=== PATIENT | female | born 1945 | race Caucasian/White ===

== ENCOUNTER 2017-01-30 05:14 | Inpatient (IN) | payer OTHER ==
[2017-01-27 12:48] VITALS: BMI 31.0
--- NOTE | 2017-01-27 13:31 | PAT Medication Instructions ---
Service Date Jan 27, 2017. Current Home Medication List Acetaminophen (Tylenol), 1 TAB PO TID PRN for PRN Alprazolam (Xanax), 0.25 MG PO BID PRN for PRN Aspirin (Aspirin Ec), 81 MG PO QAM Atorvastatin (Lipitor), 40 MG PO Q2D B-Complex W/Biotin & Folic Aci (Super B-50 B-Complex), 1 TAB PO QAM Calcium Carbonate-Vitamin D (Calcium + D), 1 TAB PO BID Cholecalciferol (Vitamin D3), 1 TAB PO QAM Cyanocobalamin (Vitamin B12 500MCG), 1,000 MCG PO QAM Diclofenac (Voltaren), 75 MG PO BID Furosemide (Lasix), 20 MG PO PRN Gabapentin (Neurontin), 600 MG PO HS Glipizide (Glipizide Er), 1 TAB PO QAM Hctz/Losartan (Hyzaar 12.5MG/50MG), 1 TAB PO QAM Insulin Glargine (Toujeo Solostar), 29 UNITS INJ HS Levothyroxine Sodium (Levothyroxine Sodium), 1 TAB PO QAM Oxycodone/Acetaminophen 5MG/325MG (Percocet 5MG/325MG), 1 TAB PO TID PRN for PRN Sertraline (Zoloft), 150 MG PO HS [Soma], 1 TAB PO TID PRN for RN [Noah Reds], 1 TAB PO QAM Medication Instructions For Your Scheduled Surgery - Check with surgeon for instructions: Diclofenac (Voltaren), 75 MG PO BID - Hold the following medications starting 01/28/17: [Noah Reds], 1 TAB PO QAM - Hold the following medications the morning of surgery: Hctz/Losartan (Hyzaar 12.5MG/50MG), 1 TAB PO QAM Glipizide (Glipizide Er), 1 TAB PO QAM Furosemide (Lasix), 20 MG PO PRN Cyanocobalamin (Vitamin B12 500MCG), 1,000 MCG PO QAM Cholecalciferol (Vitamin D3), 1 TAB PO QAM Calcium Carbonate-Vitamin D (Calcium + D), 1 TAB PO BID B-Complex W/Biotin & Folic Aci (Super B-50 B-Complex), 1 TAB PO QAM [Soma], 1 TAB PO TID PRN for RN - Take the following medications the morning of surgery with a sip of water: Levothyroxine Sodium (Levothyroxine Sodium), 1 TAB PO QAM Oxycodone/Acetaminophen 5MG/325MG (Percocet 5MG/325MG), 1 TAB PO TID PRN for PRN Atorvastatin (Lipitor), 40 MG PO Q2D Aspirin (Aspirin Ec), 81 MG PO QAM (okay to continue per surgeon) Acetaminophen (Tylenol), 1 TAB PO TID PRN for PRN (if needed) Alprazolam (Xanax), 0.25 MG PO BID PRN for PRN (if needed) - Take the following medications as scheduled the night before surgery: Sertraline (Zoloft), 150 MG PO HS Oxycodone/Acetaminophen 5MG/325MG (Percocet 5MG/325MG), 1 TAB PO TID PRN for PRN (if needed) Insulin Glargine (Toujeo Solostar), 29 UNITS INJ HS Gabapentin (Neurontin), 600 MG PO HS Furosemide (Lasix), 20 MG PO PRN (if needed) Calcium Carbonate-Vitamin D (Calcium + D), 1 TAB PO BID Acetaminophen (Tylenol), 1 TAB PO TID PRN for PRN (if needed) Alprazolam (Xanax), 0.25 MG PO BID PRN for PRN (if needed) [Soma], 1 TAB PO TID PRN for RN If you have any questions please call us at [phone] or [phone] or [phone]
--- NOTE | 2017-01-27 14:16 | DIAGNOSTIC IMAGING REPORT ---
CHEST 2 VIEWS ROUTINE HISTORY:71 yearsFemalepreoperative exam. COMPARISON: None available. TECHNIQUE: Frontal and lateral views of the chest. FINDINGS: Cardiomediastinal and hilar silhouettes are within normal limits. No pneumothorax, pleural effusion, focal airspace consolidation or overt pulmonary edema. Degenerative changes are seen within the bilateral acromioclavicular and glenohumeral joints. Multilevel intervertebral disc space narrowing is present. IMPRESSION: No acute cardiopulmonary process. The above report was generated using voice recognition software. It may contain grammatical, syntax or spelling errors. Electronically signed by: Kenan Ramirez M.D. 01/27/2017 2:14 PM Dictated Date/Time: 01/27/2017 2:13 PM
[2017-01-27 14:53] LABS: BASO % 0.5 %; BASO ABS # 0.03 K/uL (0-0.2); COMPLETE YES; EOS % 6.3 %; HEMATOCRIT 41.4 % (37-47); LYMPH % 29.6 %; LYMPH ABS # 1.73 K/uL (1.2-3.4); MEAN CELL VOLUME 87.9 fL (80-100); MEAN CORPUSCULAR HGB CONC 31.9 g/dl (32-36); MEAN PLATELET VOLUME 9.8 fL (7.4-10.4); MONO % 8.2 %; NEUT % 55.4 %; PLATELET COUNT 290 K/uL (130-400); RED BLOOD COUNT 4.71 M/uL (4.2-5.4); WHITE BLOOD COUNT 5.84 K/uL (4.8-10.8)
[2017-01-27 15:04] LABS: PROTHROMBIN TIME (PATIENT) 10.3 SECONDS (9.0-12.0)
[2017-01-27 15:09] LABS: CALCIUM 9.5 mg/dl (8.5-10.1); CREATININE 0.71 mg/dl (0.60-1.20); POTASSIUM 3.3 mmol/L (3.5-5.1)
[2017-01-27 16:56] LABS: URINE APPEARANCE CLEAR (CLEAR); URINE BILIRUBIN NEG (NEG); URINE COLOR YELLOW; URINE EPITHELIAL CELL AUTO 0-5 /lpf (0-5); URINE NITRITE NEG (NEG); URINE SPECIFIC GRAVITY 1.014 (1.000-1.030); UROBILINOGEN NEG (NEG)
[2017-01-27 16:58] LABS: MANUAL MICROSCOPIC REQUIRED? NO; REVIEW REQ? NO
--- NOTE | 2017-01-28 14:25 | EDITING REQUIRED CODING QUERY ---
DIAGNOSIS NEEDED To promote full compliance with coding requirements relating to patient care, physician participation is requested in all cases of punch out crew member uncertainty. Please assist us with the question(s) below: Coding Question: The patient received care/cancelled procedure on 01/27/17 as noted within the record. Please document the diagnosis that is being addressed by the medication/treatment. Provider Response: DIAGNOSIS: Osteoarthritis Right Hip Thank you for your assistance, Brenda Macdonald - Head Of Sales Promotion
[~2017-01-30] VITALS: Ht 162.6 cm; Wt 80.7 kg
[2017-01-30] VITALS (12 sets, daily range): BP systolic 91–124; BP diastolic 52–72; PULSE 67–88; TEMP 36.2–36.8; O2SAT 92–99; Ht 162.6 cm; Wt 80.7 kg
[~2017-01-30 05:14] MED LIST: ACET-1256 PO; ALPR-411 PO; ASPI81TA28 PO; ATOR-24 PO; B-COCAP5 PO; CALC600T9 PO; CHOL1000 PO; CYAN500T13 PO; DICL-201 PO; FURO-85 PO; GABA-113 PO; GLIP-197 PO; HYZ/50125 PO; INSU1.2I INJ; LEVO150T9 PO; OXYC-57 PO; SERT50TA PO; SOMA PO; [UNRECOGNIZED DRUG - OTHER] PO
[2017-01-30] MEDS ORDERED: FAMOTIDINE 20 MG TAB PO SCH (06:00)
[2017-01-30] MEDS ORDERED: LACTATED RINGER'S 1000ML 1,000 ML IV SCH ×2 (06:00)
[2017-01-30] MEDS ORDERED: LACTATED RINGER'S 1000ML 500 ML IV ONE (06:00)
[2017-01-30] MEDS ORDERED: VANCOMYCIN INJ 1,250 MG in SODIUM CHLORIDE 0.9% 250ML 250 ML IV SCH (06:00)
[2017-01-30] MEDS ORDERED: ACETAMINOPHEN 500 MG TAB PO SCH (06:00)
[2017-01-30] MEDS ORDERED: ROPIVACAINE 5MG/ML 30 ML 150 MG, BUPIVACAINE/EPINEPHR 0.5% MPF 30 ML, KETOROLAC TROMETH... INFIL SCH ×7 (06:00)
[2017-01-30] MEDS ORDERED: GABAPENTIN 300 MG CAP PO SCH (06:00)
[2017-01-30] MEDS ORDERED: PROPOFOL IV EMULSION 10 MG/ML 20 ML VIAL IV ONE ×2 (06:18→09:14)
[2017-01-30] MEDS ORDERED: MIDAZOLAM HCL 1 MG/ML 2ML VIAL ONE ×2 (06:19→07:17)
[2017-01-30] MEDS ORDERED: FENTANYL CITRATE INJ 50 MCG/1 ML 2 ML VIAL ONE ×2 (06:19→07:17)
[2017-01-30] MEDS ORDERED: BUPIVACAINE 0.5 % 5 MG/1 ML PF 10ML VIAL ONE (06:31)
--- NOTE | 2017-01-30 06:44 | History and Physical ---
History & Physical Date Jan 30, 2017. Chief Complaint Osteoarthritis Right Hip History of Present Illness The patient is a 71 year old female with complaints of chronic right hip pain Additional History Hepatic Disease: No Endocrine Disorder: No Kidney Disease: No Hypertension: No Heart Disease: No Bleeding Tendencies: No Infectious Diseases: No Allergies Coded Allergies: Amoxicillin (Verified Allergy, Unknown, GETS YEAST INFECTION, 01/30/17) Clavulanic Acid (Verified Allergy, Unknown, GETS YEAST INFECTION, 01/30/17) Home Medications Scheduled Aspirin (Aspirin Ec), 81 MG PO QAM Atorvastatin (Lipitor), 40 MG PO Q2D B-Complex W/Biotin & Folic Aci (Super B-50 B-Complex), 1 TAB PO QAM Calcium Carbonate-Vitamin D (Calcium + D), 1 TAB PO BID Cholecalciferol (Vitamin D3), 1 TAB PO QAM Cyanocobalamin (Vitamin B12 500MCG), 1,000 MCG PO QAM Diclofenac (Voltaren), 75 MG PO BID Furosemide (Lasix), 20 MG PO PRN Gabapentin (Neurontin), 600 MG PO HS Glipizide (Glipizide Er), 1 TAB PO QAM Hctz/Losartan (Hyzaar 12.5MG/50MG), 1 TAB PO QAM Insulin Glargine (Toujeo Solostar), 29 UNITS INJ HS Levothyroxine Sodium (Levothyroxine Sodium), 1 TAB PO QAM Sertraline (Zoloft), 150 MG PO HS [Noah Reds], 1 TSP PO QAM Scheduled PRN Acetaminophen (Tylenol), 1 TAB PO TID PRN for PRN Alprazolam (Xanax), 0.25 MG PO BID PRN for PRN Oxycodone/Acetaminophen 5MG/325MG (Percocet 5MG/325MG), 1 TAB PO TID PRN for PRN [Soma], 1 TAB PO TID PRN for RN Physical Examination Skin: warm/dry, no rash Eyes: normal inspection, EOMI, sclerae normal ENT: normal ENT inspection, pharynx normal Head: normocephalic, atraumatic Neck: supple, no adenopathy, trachea midline Respiratory/Chest: lungs clear, normal breath sounds, no respiratory distress Cardiovascular: regular rate, rhythm, no edema, no murmur Abdomen / GI: normal bowel sounds, non tender Back: normal inspection Extremities: normal inspection, normal range of motion Neurologic/Psych: no motor/sensory deficits, alert, normal reflexes, oriented x 3 Diagnosis Osteoarthritis Right Hip Plan of Treatment Right Total Hip Arthroplasty
--- NOTE | 2017-01-30 06:45 | History & Physical Bridge Note ---
H&P Re-Evaluation Bridge Note: I have examined the patient, reviewed the History & Physical and in the interval since the performance of the History & Physical I have noted the following changes of clinical significance: No changes noted
[2017-01-30] MEDS ORDERED: BACITRACIN 50000 UNIT VIAL ONE (06:55)
[2017-01-30] MEDS ORDERED: ORTHO JOINT ANESTHETIC ONE (06:55)
[2017-01-30] MEDS: TRANEXAMIC ACID INJ 1,000 MG in SODIUM CHLORIDE 0.9% 100ML 100 ML IV SCH ×2 (07:12→12:23)
[2017-01-30] MEDS ORDERED: EpHEDrine SULFATE 50MG/5ML SYR ONE (07:48)
[2017-01-30] MEDS ORDERED: PHENYLEPHRINE 100MCG/ML 5ML SYR ONE (07:48)
[2017-01-30] MEDS ORDERED: ONDANSETRON INJ 2 MG/ML 2 ML VIAL IV PRN ×2 (08:15→09:45)
[2017-01-30] MEDS ORDERED: EpHEDrine SULFATE INJ 50 MG/ML AMP IV PRN (08:15)
[2017-01-30] MEDS ORDERED: ATROPINE SULFATE 0.1 MG/ML 5ML SYR IV PRN (08:15)
--- NOTE | 2017-01-30 09:33 | [facility] Post Operative Brief Note ---
Immediate Operative Summary Operative Date Jan 30, 2017. Pre-Operative Diagnosis Right hip osteoarthritis Post-Operative Diagnosis Right hip osteoarthritis Procedure(s) Performed Right anterior total hip arthroplasty Surgeon Dr. Isidro Canvas Worker Surgeon(s) Ed Walter PA-C Estimated Blood Loss 250ml Findings as above Specimens A. Right femoral head Complication(s) None Disposition Recovery Room / PACU
[2017-01-30] MEDS ORDERED: GLUCOSE 10 TABS/TUBE PO PRN (09:45)
[2017-01-30] MEDS ORDERED: ALPRAZOLAM 0.5 MG TAB PO PRN (09:45)
[2017-01-30] MEDS ORDERED: FUROSEMIDE 20 MG TAB PO PRN (09:45)
[2017-01-30] MEDS ORDERED: BISACODYL 10 MG SUPP PR PRN (09:45)
[2017-01-30] MEDS ORDERED: DEXTROSE 50% 50 ML SYR IV PRN (09:45)
[2017-01-30] MEDS ORDERED: GLUCOSE 40% GEL 15 GM TUBE PO PRN (09:45)
[2017-01-30] MEDS ORDERED: SOD PHOSPHATE/SOD BIPHOSPHATE ENEMA 132 ML BTL PR PRN (09:45)
[2017-01-30] MEDS ORDERED: GLUCAGON FOR INJ 1 MG VIAL SQ PRN (09:45)
[2017-01-30] MEDS ORDERED: MAGNESIUM HYDROXIDE SUSP 30 ML UDC PO PRN (09:45)
[2017-01-30] MEDS ORDERED: MoRPHine SULFATE 2 MG/ML CARP IV PRN (09:45)
[2017-01-30] MEDS ORDERED: METOCLOPRAMIDE HCL INJ 5 MG/ML 2 ML VIAL IV PRN (09:45)
--- NOTE | 2017-01-30 09:54 | DIAGNOSTIC IMAGING REPORT ---
RIGHT HIP UNILATERAL 1 VIEW HISTORY:71 yearsFemaleANTERIOR HIP Right COMPARISON: None available. TECHNIQUE: 2 spot fluoroscopic images of the right hip were obtained utilizing 41.9 seconds of fluoroscopy time. FINDINGS: First image demonstrates advanced osteoarthritis of the right femoral acetabular joint. Second image was obtained status post right total hip arthroplasty which appears to be in satisfactory alignment. No gross periprosthetic fracture is seen. These images were interpreted after the conclusion of the surgery. IMPRESSION: Status post right total hip arthroplasty in satisfactory alignment. The above report was generated using voice recognition software. It may contain grammatical, syntax or spelling errors. Electronically signed by: Kenan Ramirez M.D. 01/30/2017 9:53 AM Dictated Date/Time: 01/30/2017 9:52 AM
[2017-01-30] MEDS ORDERED: PHARMACY GLYCEMIC MGMT CONSULT PRN (09:55)
--- NOTE | 2017-01-30 10:28 | Anesthesiology Progress Note ---
Anesthesia Post Op Note Date & Time Jan 30, 2017 at 10:27 Vital Signs Pain Intensity: 0 Vital Signs Past 12 Hours Date Time Temp Pulse Resp B/P (MAP) Pulse Ox O2 Delivery O2 Flow Rate FiO2 01/30/17 10:15 36.2 68 14 91/56 99 Nasal Cannula 2 01/30/17 10:05 69 14 80/49 99 Oxymask 10 01/30/17 09:55 69 11 92/57 100 Oxymask 10 01/30/17 09:45 36.2 76 11 96/56 100 Oxymask 10 01/30/17 06:00 36.8 75 16 109/57 94 Room Air Notes Mental Status: alert / awake / arousable Pt Amnestic to Procedure: Yes Nausea / Vomiting: adequately controlled Pain: adequately controlled Airway Patency, RR, SpO2: stable & adequate BP & HR: stable & adequate Hydration State: stable & adequate Neuraxial Anesthesia: was administered, sensory block is resolving Anesthetic Complications: no major complications apparent
--- NOTE | 2017-01-30 10:41 | DIAGNOSTIC IMAGING REPORT ---
RIGHT PELVIS/UNILATERAL HIP 1 VIEW CLINICAL HISTORY: 71 years-old Female presenting with IN PACU - A/P PELVIS and LATERAL HIP INCLUDING ALL OF IMPLANT. TECHNIQUE: Portable frontal view of the pelvis and crosstable lateral view of the right hip. COMPARISON: Fluoroscopic images obtained same day. FINDINGS: Total right hip arthroplasty. No hardware complication. Surgical drain in the operative bed with associated soft tissue emphysema. Left hip joint congruent. Bony pelvis otherwise normal. IMPRESSION: 1. Expected postsurgical changes status post right total hip arthroplasty. Electronically signed by: Rock Do M.D. 01/30/2017 10:40 AM Dictated Date/Time: 01/30/2017 10:37 AM
[2017-01-30] MEDS: ACETAMINOPHEN IV 1,000 MG in EMPTY BAG 0 ML IV SCH ×2 (12:29→22:19)
[2017-01-30] MEDS: SODIUM CHLORIDE 0.9% 1000ML 1,000 ML IV SCH ×2 (12:30→20:02)
[2017-01-30] MEDS: INSULIN ASPART 100 UNITS/ML 3 ML PEN SC SCH ×3 (12:30→22:19)
--- NOTE | 2017-01-30 13:12 | Pharmacy Progress Note ---
Glycemic Control Intl Consult Date of Service Jan 30, 2017. Scope Glycemic Pharmacist consulted by Dr Isidro on 01/30 for glycemic control and to write orders per [facility] inpatient glycemic control protocol Objective Weight (Kilograms): 80.700 Accuchecks BSG (last 24hrs): Test 01/30/17 05:50 01/30/17 10:32 01/30/17 11:59 Bedside Glucose 138 mg/dl (70-90) 156 mg/dl (70-90) 138 mg/dl (70-90) Recent Pertinent Medications Outpatient Anti-diabetic Regimen: * Toujeo 29 units qHS * Glipizide ER 5 mg qAM * A1c = 6.5 % 10/2016 (per patient) The patient received prior to admission: * Toujeo 29 units on 7 PM - confirmed w/ patient that she did NOT take on * Glipizide ER 5 mg qAM - last dose 01/29 Risk Factors for Insulin Resistance: * Recent Surgery: POD #0 s/p hip arthroplasty * Diet: type 2 diabetes diet ordered Assessment & Plan ASSESSMENT: * 71 y/o female admitted for hip arthroplasty, now postop * BSGs so far today are w/in goal range * Patient uses Toujeo (long-acting basal insulin) and glipizide as an outpatient. It was confirmed with her that the last dose of Toujeo was 7/12 PM so I would like to be a little more conservative with the basal dosing with the BSGs still being well controlled. Toujeo does have a longer duration of action than Lantus but I'm surprised that BSG at lunch still less than 140. * Will initiate basal dosing using insulin calculator estimates with stress level of 1 and pt's wt (this will be 1/2 of patient's Toujeo dose but seems reasonable since she does not use prandial insulin at home). Will utilize stress level of 2 for CF/CR regimen. * ADA & AACE recommend a goal blood sugar range 140-180 mg/dl for the majority of critically ill & non-critically ill patients. However, more stringent targets may be selected in individual cases. Will utilize more stringent goal of 100-140 mg/dl based on patient age & comorbidities. Additionally, tighter glycemic control is warranted to facilitate wound/infection healing. PLAN FOR INPATIENT GLYCEMIC CONTROL: * Holding outpatient oral diabetes medications * Basal insulin with LANTUS 15 units qHS - start w/ dinner since she has not had basal since 7 PM * Correctional Insulin with NOVOLOG per scale ACHS or Q6hrs while NPO * Goal Range: Low 100 mg/dL - High 140 mg/dL * Correction Factor: 30 mg/dL/unit * Nutritional / Prandial insulin per carb ratio of 1 unit per 10 grams CHO consumed * Please note that the plan above was derived based on current level of insulin resistance and hospital stress. These recommendations are appropriate for inpatient admission only. Plan of care upon discharge will need to be reassessed to avoid potential outpatient hypo/hyperglycemia. Thank you.
[2017-01-30] MEDS ORDERED: NURSING VERBAL MED ORDER ONE (13:30)
[2017-01-30] MEDS: KETOROLAC TROMETHAMINE 15 MG/ML VIAL IV. SCH ×2 (13:34→20:03)
[2017-01-30] MEDS: OXYCODONE HCL IR 5 MG TAB (IMMEDIATE RELEASE) PO PRN ×2 (15:28→20:16)
[2017-01-30] MEDS: CLINDAMYCIN IV 600 MG in DEXTROSE 5% 50ML 50 ML IV SCH (15:49)
[2017-01-30] MEDS: TROLAMINE SALICYLATE 10% CRM 255 APPLN/85 GM TUBE EXT SCH ×2 (17:47→20:17)
[2017-01-30] MEDS: INSULIN GLARGINE SOLOSTAR 100 UNITS/ML 3 ML PEN SC SCH (18:26)
[2017-01-30] MEDS: CALCIUM 600MG + VIT D 400 IU TAB PO SCH (20:18)
[2017-01-30] MEDS: DOCUSATE SODIUM 100 MG CAP PO SCH (20:18)
[2017-01-30] MEDS: GABAPENTIN 600 MG TAB PO SCH (20:19)
[2017-01-30] MEDS: ASPIRIN 325 MG ECTAB PO SCH (20:19)
[2017-01-30] MEDS: SENNA 8.6 MG TAB PO SCH (20:20)
[2017-01-30] MEDS: SERTRALINE HCL 50 MG TAB PO SCH (20:20)
[2017-01-31] MEDS: CLINDAMYCIN IV 600 MG in DEXTROSE 5% 50ML 50 ML IV SCH (00:43)
[2017-01-31 02:30] VITALS: BP 108/66; PULSE 71; TEMP 36.5; O2SAT 97
[2017-01-31] MEDS: KETOROLAC TROMETHAMINE 15 MG/ML VIAL IV. SCH ×4 (02:30→20:56)
[2017-01-31] MEDS: LEVOTHYROXINE 150 MCG TAB PO SCH (05:36)
[2017-01-31] MEDS: ACETAMINOPHEN IV 1,000 MG in EMPTY BAG 0 ML IV SCH (05:36)
[2017-01-31] MEDS: SODIUM CHLORIDE 0.9% 1000ML 1,000 ML IV SCH (05:36)
[2017-01-31 05:53] LABS: BASO % 0.2 %; BASO ABS # 0.02 K/uL (0-0.2); COMPLETE YES; EOS % 0.6 %; HEMATOCRIT 30.4 % (37-47); IG% 0.1 %; LYMPH % 10.3 %; LYMPH ABS # 0.93 K/uL (1.2-3.4); MEAN CELL VOLUME 87.9 fL (80-100); MEAN CORPUSCULAR HEMOGLOBIN 28.3 pg (25-34); MEAN CORPUSCULAR HGB CONC 32.2 g/dl (32-36); MEAN PLATELET VOLUME 9.3 fL (7.4-10.4); MONO % 6.5 %; NEUT % 82.3 %; PLATELET COUNT 203 K/uL (130-400); RED BLOOD COUNT 3.46 M/uL (4.2-5.4); WHITE BLOOD COUNT 8.99 K/uL (4.8-10.8)
[2017-01-31 06:31] LABS: BUN/CREATININE RATIO 27.6 (10-20); CALCIUM 8.6 mg/dl (8.5-10.1); CREATININE 0.6 mg/dl (0.60-1.20); POTASSIUM 3.6 mmol/L (3.5-5.1)
[2017-01-31 07:22] VITALS: BP 107/64; PULSE 67; TEMP 36.5; O2SAT 97
[2017-01-31] MEDS: OXYCODONE HCL IR 5 MG TAB (IMMEDIATE RELEASE) PO PRN ×3 (07:55→17:34)
[2017-01-31] MEDS: ASPIRIN 325 MG ECTAB PO SCH ×2 (08:32→20:56)
[2017-01-31] MEDS: DOCUSATE SODIUM 100 MG CAP PO SCH ×2 (08:32→20:56)
[2017-01-31] MEDS: CALCIUM 600MG + VIT D 400 IU TAB PO SCH ×2 (08:32→20:56)
[2017-01-31] MEDS: CYANOCOBALAMIN 500 MCG TAB (VIT B-12) PO SCH (08:33)
[2017-01-31] MEDS: MULTIVITAMIN TAB PO SCH (08:33)
[2017-01-31] MEDS: PANTOprazole SOD 40 MG TAB PO SCH (08:33)
[2017-01-31] MEDS: CHOLECALCIFEROL 1000 INTER.UNIT TAB PO SCH (08:34)
[2017-01-31] MEDS: VITAMIN B COMPLEX TAB PO SCH (08:34)
[2017-01-31] MEDS: LOSARTAN/HCTZ 50-12.5 EA TAB PO SCH ×2 (08:35→08:42)
[2017-01-31] MEDS: TROLAMINE SALICYLATE 10% CRM 255 APPLN/85 GM TUBE EXT SCH ×4 (08:35→20:56)
[2017-01-31] MEDS: INSULIN ASPART 100 UNITS/ML 3 ML PEN SC SCH ×4 (08:38→21:00)
[2017-01-31 08:40] VITALS: BP 99/60; PULSE 64
[2017-01-31] MEDS ORDERED: ATORVASTATIN 40 MG TAB PO SCH ×2 (09:00→21:00)
--- NOTE | 2017-01-31 11:06 | Orthopedic Progress Note ---
Orthopedic Progress Note Date of Service Jan 31, 2017. Subjective Post OP Day: 1 Reports: feeling well Additional Notes: S&E at bedside. Doing well. No complaints Objective calves soft nontender, N/V intact, hip located, dressing C/D/I Date Time Temp Pulse Resp B/P (MAP) Pulse Ox O2 Delivery O2 Flow Rate FiO2 01/31/17 08:40 64 99/60 (73) 01/31/17 07:45 Room Air 01/31/17 07:22 36.5 67 16 107/64 (78) 97 Room Air 01/31/17 02:30 36.5 71 19 108/66 (80) 97 Room Air 01/31/17 00:41 Room Air 01/30/17 22:44 36.7 67 19 100/61 (74) 94 Room Air 01/30/17 18:49 36.4 88 18 124/71 (88) 92 Room Air 01/30/17 16:00 Nasal Cannula 2.0 01/30/17 15:55 36.8 01/30/17 15:23 113/67 (82) 01/30/17 15:21 36.5 84 16 91/53 (66) 95 Nasal Cannula 2.0 01/30/17 14:25 36.2 70 18 120/72 (88) 98 Nasal Cannula 2.0 01/30/17 13:22 36.2 79 16 120/71 (87) 96 01/30/17 12:49 36.2 76 16 106/60 (75) 99 Nasal Cannula 2.0 01/30/17 12:06 98 Nasal Cannula 2.0 01/30/17 11:55 70 18 98/64 (75) 98 Nasal Cannula 2.0 01/30/17 11:34 98 Nasal Cannula 2.0 01/30/17 11:22 69 14 91/52 (65) 98 Nasal Cannula 2.0 01/30/17 11:10 36.1 68 16 94/51 99 Nasal Cannula 2 01/30/17 11:05 73 16 93/57 99 Nasal Cannula 2 Laboratory Results 24 Hours: Test 01/31/17 05:38 White Blood Count 8.99 K/uL Red Blood Count 3.46 M/uL Hemoglobin 9.8 g/dL Hematocrit 30.4 % Mean Corpuscular Volume 87.9 fL Mean Corpuscular Hemoglobin 28.3 pg Mean Corpuscular Hemoglobin Concent 32.2 g/dl Platelet Count 203 K/uL Mean Platelet Volume 9.3 fL Neutrophils (%) (Auto) 82.3 % Lymphocytes (%) (Auto) 10.3 % Monocytes (%) (Auto) 6.5 % Eosinophils (%) (Auto) 0.6 % Basophils (%) (Auto) 0.2 % Neutrophils # (Auto) 7.40 K/uL Lymphocytes # (Auto) 0.93 K/uL Monocytes # (Auto) 0.58 K/uL Eosinophils # (Auto) 0.05 K/uL Basophils # (Auto) 0.02 K/uL Assessment & Plan Assessment: s/p R ROSE Plan: Aspirin 325 twice a day for 6 weeks Oxycodone for pain WBAT plan d/c to home tomorrow
[2017-01-31] MEDS: ACETAMINOPHEN 500 MG TAB PO SCH ×2 (13:30→21:35)
[2017-01-31 15:40] VITALS: BP 102/65; PULSE 62; TEMP 36.7; O2SAT 99
[2017-01-31 16:30] VITALS: O2SAT 99
[2017-01-31] MEDS: GABAPENTIN 600 MG TAB PO SCH (20:56)
[2017-01-31] MEDS: SENNA 8.6 MG TAB PO SCH (20:57)
[2017-01-31] MEDS: SERTRALINE HCL 50 MG TAB PO SCH (20:57)
[2017-01-31] MEDS: INSULIN GLARGINE SOLOSTAR 100 UNITS/ML 3 ML PEN SC SCH (20:58)
[2017-01-31 22:53] VITALS: BP 113/75; PULSE 73; TEMP 36.6; O2SAT 98
[2017-02-01] MEDS: OXYCODONE HCL IR 5 MG TAB (IMMEDIATE RELEASE) PO PRN ×2 (00:49→07:48)
[2017-02-01] MEDS: KETOROLAC TROMETHAMINE 15 MG/ML VIAL IV. SCH ×2 (01:39→07:35)
[2017-02-01] MEDS: ACETAMINOPHEN 500 MG TAB PO SCH (05:32)
[2017-02-01] MEDS: LEVOTHYROXINE 150 MCG TAB PO SCH (05:32)
[2017-02-01 06:40] VITALS: BP 95/60; PULSE 80; TEMP 36.6; O2SAT 90
--- NOTE | 2017-02-01 07:17 | Orthopedic Progress Note ---
Orthopedic Progress Note Date of Service Feb 01, 2017. Subjective Post OP Day: 2 Reports: feeling well Additional Notes: S&E at bedside. Pain controlled. No complaints. Objective calves soft nontender, N/V intact, incision C/D/I Date Time Temp Pulse Resp B/P (MAP) Pulse Ox O2 Delivery O2 Flow Rate FiO2 02/01/17 06:40 36.6 80 16 95/60 (72) 90 Room Air 02/01/17 00:00 Room Air 01/31/17 22:53 36.6 73 18 113/75 (88) 98 Room Air 01/31/17 17:52 Room Air 01/31/17 16:30 99 Room Air 01/31/17 15:40 36.7 62 18 102/65 (77) 99 Room Air 01/31/17 08:40 64 99/60 (73) 01/31/17 07:45 Room Air 01/31/17 07:22 36.5 67 16 107/64 (78) 97 Room Air Assessment & Plan Assessment: s/p R ROSE Plan: Aspirin 325 twice a day for 6 weeks Oxycodone for pain WBAT plan d/c to home today
[2017-02-01] MEDS ORDERED: RXC5 PO (07:21)
[2017-02-01] MEDS ORDERED: ASPEC325 PO (07:21)
--- NOTE | 2017-02-01 07:22 | Discharge Instructions ---
Discharge Instructions Date of Service Feb 01, 2017. Admission Reason for Admission: Right Hip Osteoarthritis Discharge Discharge Diagnosis / Problem: Right Total Hip Discharge Goals Goal(s): Decrease discomfort, Improve function Activity Recommendations Activity Limitations: as noted below Shower/Bathe: may shower/bathe in 3 days . Instructions / Follow-Up Instructions / Follow-Up Activity and Therapy Recommendations: * If you are using [facility] then Physical Therapy will be provided until they feel you are ready to start Outpatient Physical Therapy. If you are not using a Home Health agency then Outpatient Physical Therapy should start about 3-5 days from your day of surgery. Therapy will last about 3-6 weeks * You were shown a series of exercises in the hospital. Do these exercises three times each day including the exercises you were shown in physical therapy. * Get up and walk several times each day.~ For the first four weeks, try not to stand or walk for more than one hour at a time. If you do stand or walk for more than one hour, you will not hurt anything, but your leg will likely swell.~ ~ * As you feel comfortable, you may change from the walker or crutches to a cane and~then to independent walking. Medications: * Narcotic You will likely be sent home from the hospital with a prescription for the narcotic pain medication that worked best throughout your stay. * Aspirin Most patients will be required to take Aspirin 325mg twice a day for 6 weeks after surgery. This is obtained [id number] and a prescription is not necessary. * Other medications may be prescribed for specific circumstances. If you have any questions, please call the office at . * Resume previous home medications unless otherwise instructed TEDs/Elastic Stockings: The white elastic stockings help limit swelling and prevent blood clots from forming in your legs. The more you wear them, the more they work. Wear them for six weeks. Dressing Care: You will likely have a Prineo dressing covering your incision. This looks like a glued on clear mesh dressing. Do not remove this dressing until you follow- up in my office in 2-3 weeks. Its pretty hard to peel it off. You may leave the Prineo dressing uncovered or cover it if it is draining a little bit. No further dressing care is required Showering: You may shower 3 days from the day of surgery. Leave the Prineo dressing intact and let the soapy shower water run over it. Do not scrub or soak the dressing or the incision. Things To Watch For: * Drainage from the incision site that occurs more than one week after your surgery. * Increased redness at the incision site. * Fever above 102 degrees Fahrenheit. * Unusual chest pain or shortness of breath. * Call [facility] at with any of the above problems Follow-Up Visit: Follow-up with Dr. Isidro 2-3 weeks after your day of surgery. An appointment was probably scheduled when you signed-up for surgery in the office. If you have any questions call Office Instructions: More detailed instructions as well as Frequently Asked Questions were provided in a folder by our office when you signed-up for surgery. Please review these instructions when you get home. If you have any further questions or concerns, please feel free to call the office at [phone] Current Hospital Diet Patient's current hospital diet: Diabetes Type 2 Diet Discharge Diet Recommended Diet: Diabetes Type 2 Diet Procedures Procedures Performed: Right anterior total hip arthroplasty Pending Studies Studies pending at discharge: no Medical Emergencies . Who to Call and When: Medical Emergencies: If at any time you feel your situation is an emergency, please call [phone] immediately. . Non-Emergent Contact Non-Emergency issues call your: Surgeon Call Non-Emergent contact if: wound has increased drainage, wound has increased redness . "Provider Documentation" section prepared by Antwon Isidro. . VTE Core Measure Inpt VTE Proph given/why not?: Other Anticoagulation (Aspirin 325 twice a day for 6 weeks)
[2017-02-01] MEDS: TROLAMINE SALICYLATE 10% CRM 255 APPLN/85 GM TUBE EXT SCH (07:38)
[2017-02-01] MEDS: INSULIN ASPART 100 UNITS/ML 3 ML PEN SC SCH ×2 (07:38→11:45)
[2017-02-01] MEDS: PANTOprazole SOD 40 MG TAB PO SCH (07:39)
[2017-02-01] MEDS: LOSARTAN/HCTZ 50-12.5 EA TAB PO SCH (07:39)
[2017-02-01] MEDS: DOCUSATE SODIUM 100 MG CAP PO SCH (07:39)
[2017-02-01] MEDS: CALCIUM 600MG + VIT D 400 IU TAB PO SCH (07:40)
[2017-02-01] MEDS: ASPIRIN 325 MG ECTAB PO SCH (07:40)
[2017-02-01] MEDS: CHOLECALCIFEROL 1000 INTER.UNIT TAB PO SCH (07:41)
[2017-02-01] MEDS: CYANOCOBALAMIN 500 MCG TAB (VIT B-12) PO SCH (07:41)
[2017-02-01] MEDS: VITAMIN B COMPLEX TAB PO SCH (07:42)
[2017-02-01] MEDS: MULTIVITAMIN TAB PO SCH (07:43)
[2017-02-01 09:04] VITALS: BP 115/58; PULSE 80; O2SAT 95
[2017-02-01 09:35] VITALS: BP 95/60; PULSE 80; TEMP 36.6; O2SAT 90
--- NOTE | 2017-02-12 17:30 | DISCHARGE SUMMARY ---
DISCHARGE DIAGNOSIS: Primary osteoarthritis of the right hip. PROCEDURE: Right total hip arthroplasty through an anterior approach on 01/30/[address] Antwon Isidro. DISCHARGE INSTRUCTIONS: 1. Aspirin 325 mg twice a day for 6 weeks. 2. Oxycodone 5-10 mg every 4 hours as needed for pain. 3. Xanax 0.25 mg twice a day. 4. Lipitor 40 mg daily. 5. Lasix 20 mg daily. 6. Neurontin 600 mg at night. 7. Glipizide 5 mg daily. 8. Hyzaar 12.5/50 mg daily. 9. Insulin 29 units at night. 10. Synthroid 150 mcg daily. 11. Percocet 3 times a day as needed for pain. 12. Zoloft 250 mg at night. 13. Continue the remainder of vitamins. 14. May shower 3 days from the day of surgery. 15. Follow up with Dr. Isidro in 2 weeks. 16. Call the office of Dr. Isidro with any questions or concerns. HOSPITAL COURSE: Bonny is a pleasant 71-year-old female who presented to my office with complaints of chronic right hip pain. X-rays and physical examination were diagnostic for primary osteoarthritis of the right hip. After failing conservative treatment, she elected to undergo a right total hip arthroplasty. On 01/30/2017 she arrived at [facility] and underwent a right anterior total hip arthroplasty without complications. She had a spinal anesthetic. Postoperatively, she was started on aspirin and discharged to general orthopedic floor. Her hospital course was uneventful. On postop day #1, her H&H was stable at 9.8 and 30.4. She was able to get up and ambulate well with physical therapy. Her pain was well controlled. On postop day #2, she continued to do well. The dressing was changed, the drain was pulled and she was subsequently discharged to home with the above instructions.
== END 2017-02-01 12:03 | disposition home health service (06) | DRG 470 ==
LOC: C.ACU 05:14 → C.3E 06:30 → ENRESERV 09:59
PROVIDERS: ADMIT Orthopaedic Surgery; ATTEND Orthopaedic Surgery
PROC: 0SR904A Replacement of Right Hip Joint with Ceramic on Polyethylene Synthetic Substitute, Uncemented, Open Approach (ICD-10-PCS; principal; 2017-01-30 07:00)
DX: M16.11 Unilateral primary osteoarthritis, right hip (principal); Z79.82 Long term (current) use of aspirin; Z79.4 Long term (current) use of insulin; Z79.899 Other long term (current) drug therapy